=== PATIENT | male | born 1975 | race Caucasian/White ===

== ENCOUNTER 2020-11-12 19:28 | Emergency (ER) | payer MEDICARE, MEDICAID ==
[2020-11-12 19:56] LABS: #Basophils 0.1 thou/uL (0.0-0.2); #Eosinphils 0.2 thou/uL (0.0-0.7); #Lymphocytes 1.4 thou/uL (1.20-3.40); #Monocytes 0.5 thou/uL (0.11-0.59); #Neutrophils 7.9 thou/uL (1.40-6.50); %Basophils 0.9 % (0.0-1.0); %Eosinophils 2.2 % (0.0-10.0); %Lymphocytes 13.3 % (21.0-51.0); %Monocytes 5.4 % (0.0-10.0); %Neutrophils 78.3 % (42.0-75.0); Hemoglobin 12.1 g/dL (14.0-18.0); Mean Corpuscular HGB CONC 30.7 g/dL (32.0-36.0); Mean Corpuscular Hemoglobin 26.9 pg (27.0-31.0); Mean Corpuscular Volume 87.6 fL (78.0-98.0); Mean Platelet Volume 8.7 fL (7.4-10.4); Platelet Count 282 thou/uL (130-400); RBC Distribution Width 17.7 % (11.5-14.5); White Blood Cell (WBC) Count 10.1 thou/uL (4.8-10.8)
[2020-11-12] MEDS ORDERED: Aspirin Chewable 81 MG TAB ONE (19:58)
[2020-11-12] MEDS ORDERED: Aspirin 325 MG TAB ONE (19:58)
[2020-11-12 20:18] LABS: ALT (SGPT) 38 U/L (8-55); AST (SGOT) 14 U/L (5-34); Albumin 3.6 g/dL (3.5-5.0); Alkaline Phosphatase 68 U/L (40-110); Anion Gap 16 mmol/L (10-20); BUN (Urea Nitrogen) 10 mg/dL (8.9-20.6); Bilirubin, Total 0.2 mg/dL (0.2-1.2); Calc. Creatinine Clearance 0 mL/min (70-130); Calcium 8.8 mg/dL (7.8-10.44); Carbon Dioxide 31 mmol/L (22-29); Chloride 91 mmol/L (98-107); Globulin 2.8 g/dL (2.4-3.5); Glucose 174 mg/dL (70-105); Potassium 4.7 mmol/L (3.5-5.1); Protein, Total 6.4 g/dL (6.0-8.3); Sodium 133 mmol/L (136-145)
[2020-11-12 21:06] LABS: Bilirubin Negative (Negative); Blood, Urine Negative (Negative); Clarity Clear (Clear); Glucose, Urine (Dipstick) Negative (Negative); Ketone, Urine Negative (Negative); Leukocyte Negative (Negative); Nitrite Negative (Negative); Protein, Urine (Dipstick) Negative (Neg-Trace); Specific Gravity, Urine 1.015 (1.005-1.030); Urobilinogen 0.2 mg/dL (Less than 2)
[2020-11-12 21:07] LABS: Bacteria/HPF None Seen HPF (None Seen); RBC/HPF 0-3 HPF (0-3); Squamous Epithelial 0-3 HPF (0-3); WBC/HPF 0-3 HPF (0-3)
[2020-11-12 21:58] LABS: Amphetamine Not Detected (NotDetected); Barbiturates Screen Not Detected (NotDetected); Benzodiazepine Screen Not Detected (NotDetected); Cocaine Metabolite Screen Not Detected (NotDetected); Methadone Not Detected (NotDetected); Methamphetamine Not Detected (NotDetected); Opiate Screen Detected (NotDetected); Oxycodone Screen Not Detected (NotDetected); Phencyclidine (PCP) Not Detected (NotDetected); THC/Cannabinoid Screen Not Detected (NotDetected); Tricyclic Screen Not Detected (NotDetected)
[2020-11-12 21:59] LABS: Medtox Control Line Valid? VALID (VALID)
== END 2020-11-12 21:20 | disposition home or self-care (01) ==
LOC: MADERS 19:28
DX: R07.89 Other chest pain (principal); M25.561 Pain in right knee; J44.9 Chronic obstructive pulmonary disease, unspecified; E78.5 Hyperlipidemia, unspecified; E11.9 Type 2 diabetes mellitus without complications; F17.210 Nicotine dependence, cigarettes, uncomplicated; I10 Essential (primary) hypertension
CPT/HCPCS: 71046; 80053; 80306; 81001; 83605; 83880; 84484; 85025; 93005; 94760